=== PATIENT | female | born 1975 | race Caucasian/White ===

== ENCOUNTER 2019-01-04 21:10 | Inpatient (IN) | payer SELFPAY ==
[~2019-01-04] VITALS: Ht 162.6 cm; Wt 81.8 kg
[2019-01-04 21:44] LABS: BASOPHILS 0.1 % (0-2); EOSINOPHILS 0.6 % (0-7); HEMATOCRIT 35.2 % (36.0-48.0); IMMATURE GRANULOCYTES 0.4 % (0-5); LYMPHOCYTES 20.7 % (15-50); MCHC 34.1 g/dL (31.0-37.0); MCV 79.1 fL (80.0-100.0); MEAN PLATELET VOLUME 10.8 fL (7.4-10.4); MONOCYTES 7.9 % (2-11); NEUTROPHILS 70.3 % (40-80); PLATELET COUNT 321 10x3/uL (130-400); RBC 4.45 10x6/uL (4.00-5.40); RDW 16.2 % (11.5-14.5); WBC 16.5 10x3/uL (4.8-10.8)
[2019-01-04 21:56] LABS: ALKALINE PHOSPHATASE 114 U/L (46-116); ALT (SGPT) 39 U/L (10-68); CALC OSMOLALITY 282 mosm/kg (275-300); CALCIUM 8.8 mg/dL (8.5-10.1); CARBON DIOXIDE 19.2 mmol/L (21.0-32.0); CHLORIDE - SERUM 105 mmol/L (98-107); CREATININE - SERUM 2.1 mg/dL (0.6-1.3); GLUCOSE 101 mg/dL (74-106); POTASSIUM - SERUM 3.3 mmol/L (3.5-5.1); PROTEIN - SERUM 7.9 g/dL (6.4-8.2); SODIUM 141 mmol/L (136-145); UREA NITROGEN 19 mg/dL (7-18); eGFR NON AFRICAN AMERICAN 27 mL/min (90-120)
[2019-01-04 22:19] LABS: CREATINE KINASE 995 UL (21-215)
[2019-01-04 22:20] LABS: CKMB 8.3 U/L (0.0-3.6)
--- NOTE | 2019-01-04 23:47 | NUR ---
PT "UNABLE" TO GIVE URINE SAMPLE AND HAS REFUSED A MUNOZ IN AND OUT CATHETER.
[2019-01-05 01:25] VITALS: BP 125/61; Ht 162.6 cm; Wt 81.8 kg
[2019-01-05 04:30] VITALS: BP 102/59
[2019-01-05 06:11] LABS: BASOPHILS 0.1 % (0-2); EOSINOPHILS 1.4 % (0-7); HEMATOCRIT 35.9 % (36.0-48.0); HEMOGLOBIN 12.1 g/dL (12-16); IMMATURE GRANULOCYTES 0.2 % (0-5); LYMPHOCYTES 27.8 % (15-50); MCH 26.8 pg (26.0-34.0); MCHC 33.7 g/dL (31.0-37.0); MCV 79.6 fL (80.0-100.0); MONOCYTES 8.6 % (2-11); NEUTROPHILS 61.9 % (40-80); RBC 4.51 10x6/uL (4.00-5.40); RDW 16.5 % (11.5-14.5)
[2019-01-05 06:33] LABS: PLATELET COUNT 255 10x3/uL (130-400); WBC 8.3 10x3/uL (4.8-10.8)
[2019-01-05 06:53] LABS: ALBUMIN 3.2 g/dL (3.4-5.0); ALKALINE PHOSPHATASE 96 U/L (46-116); ALT (SGPT) 37 U/L (10-68); BILIRUBIN - TOTAL 0.49 mg/dL (0.2-1.3); CALC OSMOLALITY 281 mosm/kg (275-300); CALCIUM 8.6 mg/dL (8.5-10.1); CARBON DIOXIDE 19.8 mmol/L (21.0-32.0); CHLORIDE - SERUM 106 mmol/L (98-107); CKMB 5.4 U/L (0.0-3.6); GLUCOSE 82 mg/dL (74-106); MAGNESIUM - SERUM 2.1 mg/dL (1.8-2.4); PHOSPHOROUS 3.9 mg/dL (2.5-4.9); PROTEIN - SERUM 6.8 g/dL (6.4-8.2); SODIUM 141 mmol/L (136-145); TROPONIN-I < 0.017 ng/mL (0.000-0.060); UREA NITROGEN 17 mg/dL (7-18)
[2019-01-05 07:27] LABS: CREATINE KINASE 659 UL (21-215); CREATININE - SERUM 1.3 mg/dL (0.6-1.3); eGFR NON AFRICAN AMERICAN 47 mL/min (90-120)
[2019-01-05 07:29] LABS: POTASSIUM - SERUM 2.9 mmol/L (3.5-5.1)
--- NOTE | 2019-01-05 07:30 | NUR ---
PT DROWSY BUT EASILY WAKES. SHIFT ASSESSMENT PERFORMED. DENIES ANY NEEDS AT THIS TIME, WILL CONT TO FOLLOW POC
[2019-01-05 08:35] VITALS: BP 124/58
[2019-01-05 12:45] VITALS: BP 111/52
--- NOTE | 2019-01-05 13:00 | NUR ---
ASSISTED PT UP TO BATHROOM AND ASSISTED PT WITH UA COLLECTION. PT THEN REQUESTING A SHOWER AND ASSISTED PT WITH SHOWER AND FULL LINEN CHANGE. PT ASSITED BACK TO BED. DENIES ANY NEEDS AT THIS TIME, WILL CONT TO FOLLOW POC
[2019-01-05 16:45] VITALS: BP 102/54
--- NOTE | 2019-01-05 18:10 | NUR ---
PT RESTING IN BED, DENIES ANY NEEDS AT THIS TIME, WILL CONT TO FOLLOW POC
--- NOTE | 2019-01-05 18:23 | NUR ---
PIV TO PT LEFT ARM LAYING ON FLOOR WITH CATHETER TIP INTACT. PT STATES SHE DID NOT EVEN REALIZE IT WAS OUT. IVF SWITCHED TO RIGHT FA PIV.
[2019-01-05 18:26] LABS: UDS - AMPHET POSITIVE QUAL (NEGATIVE); UDS - BARB NEGATIVE QUAL (NEGATIVE); UDS - BENZO NEGATIVE QUAL (NEGATIVE); UDS - COCAINE NEGATIVE QUAL (NEGATIVE); UDS - OPIATE NEGATIVE QUAL (NEGATIVE); UDS - PCP NEGATIVE QUAL (NEGATIVE); UDS - THC POSITIVE QUAL (NEGATIVE)
[2019-01-05 18:36] LABS: APPEARANCE HAZY (CLEAR); BILIRUBIN NEGATIVE (NEGATIVE); COLOR YELLOW (YELLOW); GLUCOSE NEGATIVE (NEGATIVE); KETONE MODERATE mg/dL (NEGATIVE); NITRITE POSITIVE (NEGATIVE); PROTEIN TRACE mg/dL (NEGATIVE); SPECIFIC GRAVITY 1.025 (1.005-1.020); UROBILINOGEN NORMAL (NORMAL)
[2019-01-05 18:37] LABS: BACTERIA MANY /hpf (NEGATIVE); EPITHELIAL CELLS 0-5 /hpf (0-5); RED CELLS - URINE 0-5 /hpf (0-5); WHITE CELLS - URINE 25-50 /hpf (NEGATIVE)
[2019-01-06 01:14] VITALS: BP 166/56
[2019-01-06 05:07] VITALS: BP 102/49
[2019-01-06 05:25] LABS: BASOPHILS 0.3 % (0-2); HEMATOCRIT 33.7 % (36.0-48.0); IMMATURE GRANULOCYTES 0.2 % (0-5); LYMPHOCYTES 21.3 % (15-50); MCH 26.3 pg (26.0-34.0); MCHC 32.6 g/dL (31.0-37.0); MCV 80.4 fL (80.0-100.0); MEAN PLATELET VOLUME 10.9 fL (7.4-10.4); MONOCYTES 9.4 % (2-11); NEUTROPHILS 65.8 % (40-80); PLATELET COUNT 246 10x3/uL (130-400); RBC 4.19 10x6/uL (4.00-5.40); RDW 16.9 % (11.5-14.5)
[2019-01-06 05:35] LABS: WBC 6.1 10x3/uL (4.8-10.8)
[2019-01-06 05:52] LABS: ANION GAP 13.9 mmol/L (8-16); CALCIUM 7.4 mg/dL (8.5-10.1); CARBON DIOXIDE 20.8 mmol/L (21.0-32.0); MAGNESIUM - SERUM 1.9 mg/dL (1.8-2.4); POTASSIUM - SERUM 3.7 mmol/L (3.5-5.1)
--- NOTE | 2019-01-06 08:13 | NUR ---
PATIENT IS RESTING QUIETLY ON HER LEFT SIDE. NEW IV STARTED BY FRONT OF HOUSE MANAGER NURSE IN LEFT FOREARM. 20G. SHE STATES SHE WILL EAT BREAKFAST LATER, SHE IS NOT HUNGRY. GAVE HER A BLANKET AND TURNED THE AIR WARMER. SHE SAYS SHE WANTS TO GO OUT TO SMOKE. I TOLD HER THER IS MEDICINE GOING THROUGH HER IV AND SHE NEEDS TO STAY IN BED AT THIS TIME. SCD'S ON.
[2019-01-06 08:47] VITALS: BP 134/68
--- NOTE | 2019-01-06 12:05 | NUR ---
PATIENT JUST LEFT AMA. SHE SIGNED THE PAPER, AND I REMOVED HER IV WITH CATHETER INTACT. CALLED [facility]. NO RETURN CALL YET.
--- NOTE | 2019-01-06 12:24 | NUR ---
PATIENT LEFT AMA. PAPER SIGNED. DIMITRY NOTIFIED.
[2019-01-06 13:08] LABS: CREATINE KINASE 309 UL (21-215)
[2019-01-06 13:09] LABS: CKMB 2.9 U/L (0.0-3.6)
--- NOTE | 2019-01-06 14:44 | MORECARE ---
CASE MANAGEMENT DISCHARGE SUMMARY PATIENT: ODALIS SALDIVAR UNIT: [id number] ADM DATE: 01/04/19 AGE: 43 : 73 SEX: F ROOM/BED: D.2104 AUTHOR: ROME NASSAR PHYSICIAN: REFERRING PHYSICIAN: EJ GIRALDO MD DATE OF SERVICE: 01/06/19 Discharge Plan Patient Name: ODALIS SALDIVAR Facility: [facility]:[place] : 1975 Planned Disposition: Left Against Medical Advice Anticipated Discharge Date: 01/06/19 Discharge Date: 01/06/2019 Expected LOS: 2 Initial Reviewer: [email or web address] Initial Review Date: 01/06/2019 Generated: 01/06/19 3:44 pm Patient Name: ODALIS SALDIVAR Page [id number] at 1444 All edits/amendments must be made on the electronic document DICTATION DATE: 01/06/19 1444 MANAGER PARK: ALIX 01/06/19 1444 RPT#: [id number] DC DATE:01/06/19 STATUS: DIS IN [facility] [address] [place] [address] END OF REPORT
--- NOTE | 2019-01-06 14:52 | MORECARE ---
CASE MANAGEMENT DISCHARGE SUMMARY PATIENT: ODALIS SALDIVAR UNIT: [id number] ADM DATE: 01/04/19 AGE: 43 : 73 SEX: F ROOM/BED: D.2104 AUTHOR: ROME NASSAR PHYSICIAN: REFERRING PHYSICIAN: EJ GIRALDO MD DATE OF SERVICE: 01/06/19 Discharge Plan Patient Name: ODALIS SALDIVAR [facility] [facility] 1975 Planned Disposition: Left Against Medical Advice Anticipated Discharge Date: 01/06/19 Discharge Date: 01/06/2019 Expected LOS: 2 Initial Reviewer: [email or web address] Initial Review Date: 01/06/2019 Generated: 01/06/19 3:51 pm Last DP export: 01/06/19 1:44 p Patient Name: ODALIS SALDIVAR Page [id number] at 1452 All edits/amendments must be made on the electronic document DICTATION DATE: 01/06/191450 ALMOND GRINDER: ALIX 01/06/19 145 RPT#: [id number] DC DATE:01/06/19 STATUS: DIS IN [facility] [address] [place] [address] END OF REPORT
== END 2019-01-06 13:26 | disposition home or self-care (01) | DRG 558 ==
LOC: D.ER 21:10 → D.M2 22:46
PROVIDERS: Family Medicine; ADMIT Family Medicine; ATTEND Family Medicine
DX: M62.82 Rhabdomyolysis (principal); L03.114 Cellulitis of left upper limb; N17.9 Acute kidney failure, unspecified; E87.6 Hypokalemia; F15.10 Other stimulant abuse, uncomplicated; F31.9 Bipolar disorder, unspecified; E03.9 Hypothyroidism, unspecified; I11.0 Hypertensive heart disease with heart failure; I50.9 Heart failure, unspecified; J44.9 Chronic obstructive pulmonary disease, unspecified; F20.9 Schizophrenia, unspecified; R00.0 Tachycardia, unspecified

== ENCOUNTER 2019-10-08 09:45 | Emergency (ER) | payer SELFPAY ==
[~2019-10-08] VITALS: Ht 162.6 cm; Wt 61.4 kg
[2019-10-08 09:50] VITALS: Ht 162.6 cm; Wt 61.4 kg
[2019-10-08] MEDS ORDERED: IBUPROFEN800 MG PO (10:47)
[2019-10-08] MEDS ORDERED: TALWIN NX1 TAB PO (11:23)
[2019-10-08 11:34] VITALS: BP 125/74
== END 2019-10-08 11:35 | disposition home or self-care (01) ==
LOC: D.ER 09:45
DX: S92.501A Displaced unspecified fracture of right lesser toe(s), initial encounter for closed fracture (principal); S92.352A Displaced fracture of fifth metatarsal bone, left foot, initial encounter for closed fracture; W20.8XXA Other cause of strike by thrown, projected or falling object, initial encounter; Y93.9 Activity, unspecified; Y92.9 Unspecified place or not applicable; R51 Headache

== ENCOUNTER 2020-10-09 16:00 | Emergency (ER) | payer MEDICAID ==
[~2020-10-09] VITALS: Ht 162.6 cm; Wt 68.2 kg
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
[~2020-10-09 16:00] MED LIST: IBUPROFEN800 MG PO; MACROBID100 MG PO; TALWIN NX1 TAB PO
[2020-10-09 16:24] LABS: EOSINOPHILS 1.5 % (0-7); HEMATOCRIT 34.8 % (36.0-48.0); HEMOGLOBIN 11.6 g/dL (12-16); LYMPHOCYTES 37.9 % (15-50); MCH 27.8 pg (26.0-34.0); MCHC 33.5 g/dL (31.0-37.0); MCV 83.2 fL (80.0-100.0); MEAN PLATELET VOLUME 7.9 fL (7.4-10.4); MONOCYTES 5.4 % (2-11); NEUTROPHILS 54.2 % (40-80); PLATELET COUNT 291 10x3/uL (130-400); RBC 4.18 10x6/uL (4.00-5.40); RDW 15.9 % (11.5-14.5); WBC 7.6 10x3/uL (4.8-10.8)
[2020-10-09 16:34] LABS: ANION GAP 13.2 mmol/L (8-16); CALCIUM 9.1 mg/dL (8.5-10.1); CARBON DIOXIDE 25.8 mmol/L (21.0-32.0)
[2020-10-09 16:39] LABS: ALBUMIN 3.3 g/dL (3.4-5.0); BILIRUBIN - TOTAL 0.28 mg/dL (0.2-1.3); PROTEIN - SERUM 7.9 g/dL (6.4-8.2)
[2020-10-09 16:59] LABS: INR 1.05 (0.85-1.17); PROTIME 12.7 SECONDS (11.6-15.0)
[2020-10-09 17:00] LABS: APTT 33.7 SECONDS (22.8-39.4)
[2020-10-09 18:15] VITALS: Ht 162.6 cm; Wt 68.2 kg
[2020-10-09 22:01] VITALS: BP 119/78
== END 2020-10-09 21:28 | disposition home or self-care (01) ==
LOC: D.ER 16:00
PROVIDERS: Family Medicine
DX: S11.91XA Laceration without foreign body of unspecified part of neck, initial encounter (principal); X99.1XXA Assault by knife, initial encounter; S01.00XA Unspecified open wound of scalp, initial encounter; S01.21XA Laceration without foreign body of nose, initial encounter; I10 Essential (primary) hypertension; I50.9 Heart failure, unspecified; J44.9 Chronic obstructive pulmonary disease, unspecified